=== PATIENT | female | born 1960 | race Caucasian/White ===

== ENCOUNTER 2017-06-25 07:32 | Emergency (ER) | payer BC ==
[2017-06-25 08:02] VITALS: BP 131/86
--- NOTE | 2017-06-25 08:34 | RAD ---
HISTORY: Right ankle swelling COMPARISONS: None VIEWS: 3, Frontal, lateral, and oblique views of the right ankle FINDINGS: BONE DENSITY: Normal. BONES: There is no displaced fracture. There are calcaneal enthesophytes. There is a well-corticated bone fragment off the distal fibula. JOINTS: There is no arthropathy. ALIGNMENT: There is no dislocation. SOFT TISSUES: Unremarkable. OTHER FINDINGS: None. IMPRESSION: EVIDENCE OF REMOTE AVULSION INJURY VERSUS UNUNITED OSSICLE OF THE DISTAL FIBULA. NO ACUTE OSSEOUS INJURY. IF SYMPTOMS PERSIST, RECOMMEND REPEAT IMAGING
--- NOTE | 2017-06-25 09:00 | ED ---
Lower Extremity - HPI Summary HPI Summary: 56 yr old female with the complaint of right lateral ankle swelling. Onset a week ago. No Known injury, no pain. But has swelling that has gone down over the week. She denies fever, chills, redness to the ankle. She has no other complaints. - History of Current Complaint Chief Complaint: UCLowerExtremity Stated Complaint: RT ANKLE COMPLAINT Time Seen by Provider: 06/25/17 08:10 Hx Last Menstrual Period: 2007- HAD UTERINE ABLATION Pain Intensity: 5 - Allergies/Home Medications Allergies/Adverse Reactions: Allergies Allergy/AdvReac Type Severity Reaction Status Date / Time No Known Allergies Allergy Verified 06/25/17 07:59 Home Medications: Home Medications NK [No Home Medications Reported] 06/25/17 [History Confirmed 06/25/17] PMH/Surg Hx/FS Hx/Imm Hx Endocrine/Hematology History: Denies: Hx Diabetes, Hx Thyroid Disease Cardiovascular History: Denies: Hx Hypertension Respiratory History: Denies: Hx Asthma, Hx Chronic Obstructive Pulmonary Disease (COPD) GI History: Denies: Hx Ulcer Infectious Disease History: No Infectious Disease History: Denies: Hx Hepatitis, Hx Human Immunodeficiency Virus (HIV), Traveled Outside the [place] in Last 30 Days - Social History Alcohol Use: None Substance Use Type: Reports: None Smoking Status (MU): Never Smoked Tobacco Review of Systems Constitutional: Negative Positive: Other - right ankle swelling. All Other Systems Reviewed And Are Negative: Yes Physical Exam Triage Information Reviewed: Yes Vital Signs On Initial Exam: Initial Vitals Temp Pulse Resp BP Pulse Ox 98.5 F 79 14 131/86 98 06/25/17 07:57 06/25/17 07:57 06/25/17 07:57 06/25/17 07:57 06/25/17 07:57 Vital Signs Reviewed: Yes Appearance: Positive: Well-Appearing, No Pain Distress Skin: Positive: Warm, Skin Color Reflects Adequate Perfusion Head/Face: Positive: Normal Head/Face Inspection Eyes: Positive: EOMI ENT: Positive: Normal ENT inspection, Pharynx normal Neck: Positive: Nontender Respiratory/Lung Sounds: Positive: Clear to Auscultation, Breath Sounds Present Cardiovascular: Positive: Pulses are Symmetrical in both Upper and Lower Extremities - good DP and PT pulses Musculoskeletal: Positive: Other - right ankle with mild STS lateral malleolus but non tender, not red, not warm. Neurological: Positive: Sensory/Motor Intact, Alert, Oriented to Person Place, Time, CN Intact II-III Psychiatric: Positive: Normal - Revere Coma Scale Best Eye Response: 4 - Spontaneous Best Motor Response: 6 - Obeys Commands Best Verbal Response: 5 - Oriented Coma Scale Total: 15 Diagnostics - Vital Signs Vital Signs Temp Pulse Resp BP Pulse Ox 06/25/17 07:57 98.5 F 79 14 131/86 98 - Laboratory Lab Statement: Any lab studies that have been ordered have been reviewed, and results considered in the medical decision making process. - Radiology ankle Xray Interpretation: Positive (See Comments) - old avulsion lat malleolus. final reviewed Radiology Interpretation Completed By: Radiologist Lower Extremity Course/Dx - Course Course Of Treatment: 56 yr old with positive ankle xray for old avulsion. Plan ankle gel splint, crutches, and follow up with orthopedics. - Diagnoses Provider Diagnoses: Swelling of ankle joint, right Discharge - Discharge Plan Condition: Good Disposition: HOME Patient Education Materials: Ankle Fracture (ED) Referrals: Tyler Lay DO [Primary Care Provider] - Logan Sanchez MD [Medical Doctor] -
== END 2017-06-25 09:22 | disposition home or self-care (01) ==
LOC: UCCORT 07:32
DX: M25.471 Effusion, right ankle (principal)
CPT/HCPCS: 99213; G0463

== ENCOUNTER 2018-10-07 07:21 | Emergency (ER) | payer BC ==
[2018-10-07 07:40] VITALS: BP 151/93
--- NOTE | 2018-10-07 08:12 | UC ---
Respiratory Complaint HPI - HPI Summary HPI Summary: 2 WEEKS OF COUGH, CONGESTION, HEADACHE AND FATIGUE. NO FEVER, NAUSEA/VOMITING OR EAR PAIN. YESTERDAY LEFT EYE BECAME RED AND IRRITATED WITH SOME CLEAR DRAINAGE. NO VISUAL DISTURBANCES. NO FB SENSATION. - History of Current Complaint Chief Complaint: UCGeneralIllness Stated Complaint: LEFT EAR COMPLAINT,ST Time Seen by Provider: 10/07/18 07:55 Hx Obtained From: Patient Hx Last Menstrual Period: 2007 Onset/Duration: Lasting Weeks, Still Present Timing: Constant Severity Initially: Moderate Severity Currently: Moderate Pain Intensity: 9 Pain Scale Used: 0-10 Numeric Character: Cough: Nonproductive Aggravating Factors: Nothing Alleviating Factors: Nothing Associated Signs And Symptoms: Positive: URI, Nasal Congestion, Sinus Discomfort. Negative: Fever, Wheezing - Allergies/Home Medications Allergies/Adverse Reactions: Allergies Allergy/AdvReac Type Severity Reaction Status Date / Time No Known Allergies Allergy Verified 10/07/18 07:39 PMH/Surg Hx/FS Hx/Imm Hx Previously Healthy: Yes - Surgical History Surgical History: None Surgery Procedure, Year, and Place: tubal. uterine ablation - Family History Known Family History: Positive: Non-Contributory - Social History Alcohol Use: None Substance Use Type: None Smoking Status (MU): Never Smoked Tobacco - Immunization History Most Recent Influenza Vaccination: no Review of Systems All Other Systems Reviewed And Are Negative: Yes Constitutional: Positive: Fatigue ENT: Positive: Sore Throat, Nasal Discharge, Sinus Congestion Respiratory: Positive: Cough Cardiovascular: Positive: Negative Gastrointestinal: Positive: Negative Neurological: Positive: Headache Physical Exam Triage Information Reviewed: Yes Appearance: Well-Appearing, No Pain Distress, Well-Nourished Vital Signs: Initial Vital Signs Temp 99.3 F 10/07/18 07:35 Pulse 105 10/07/18 07:35 Resp 18 10/07/18 07:35 BP 151/93 10/07/18 07:35 Pulse Ox 99 10/07/18 07:35 Vital Signs Reviewed: Yes Eyes: Positive: Conjunctiva Inflamed - LEFT EYE, Discharge - CLEAR DRAINAGE LEFT EYE, Other: - PERRL, EOMI ENT: Positive: Hearing grossly normal, Pharynx normal, TMs normal Neck: Positive: Supple, Nontender, No Lymphadenopathy Respiratory Exam: Normal Cardiovascular Exam: Normal Abdomen Description: Positive: Soft Musculoskeletal: Positive: No Edema Neurological: Positive: Alert Psychological: Positive: Age Appropriate Behavior Skin: Negative: Rashes Respiratory Course/Dx - Differential Dx/Diagnosis Provider Diagnosis: Upper respiratory infection, Conjunctivitis, left eye Discharge - Sign-Out/Discharge Documenting (check all that apply): Patient Departure All imaging exams completed and their final reports reviewed: No Studies - Discharge Plan Condition: Stable Disposition: HOME Prescriptions: Amoxicillin PO (*) [Amoxicillin 500 MG CAP*] 1,000 mg PO Q12H #28 cap Ciprofloxacin 0.3% OPTH.GERSON* [Cipro 0.3% Opth*] 1 drop LEFT EYE Q4H #1 btl Patient Education Materials: Conjunctivitis (ED) Referrals: Magda Melissa MD [Primary Care Provider] - If Needed Additional Instructions: YOUR SYMPTOMS MAY BE VIRALLY MEDIATED BUT GIVEN THE LENGTH OF TIME YOU HAVE BEEN ILL WE WILL COVER YOU WITH ANTIBIOTICS. IF YOU START THE MEDICINE BE SURE TO TAKE IT FOR THE FULL COURSE. REST, HYDRATE, OTC MEDS NEEDED. SEEK FOLLOW- UP WITH YOUR PCP IF YOU ARE NOT IMPROVING OVER THE NEXT 1-2 WEEKS. USE OTC AFRIN FOR NASAL CONGESTION. 2 SPRAYS IN EACH NOSTRIL TWICE DAILY NEEDED. DO NOT USE FOR MORE THAN 3-4 DAYS IN A ROW TO PREVENT DEVELOPING REBOUND CONGESTION. YOUR BLOOD PRESSURE WAS ELEVATED TODAY (151/93). THIS MAY BE DUE TO YOUR ACUTE CONDITION. MONITOR AND KEEP YOUR FOLLOW-UP WITH YOUR PCP IN 10 DAYS. - Billing Disposition and Condition Condition: STABLE Disposition: Home
== END 2018-10-07 08:20 | disposition home or self-care (01) ==
LOC: UCCORT 07:21
DX: J06.9 Acute upper respiratory infection, unspecified (principal); H10.9 Unspecified conjunctivitis
CPT/HCPCS: 99212; G0463